=== PATIENT | male | born 1940 | race Caucasian/White ===

== ENCOUNTER 2020-07-10 12:13 | Emergency (ER) | payer MEDICARE, OTHER ==
[2020-07-10 12:46] VITALS: BP 128/78
[2020-07-10] MEDS ORDERED: Sodium Chloride 0.9% 10 ML Syringe FLUSH PRN (13:06)
[2020-07-10] MEDS ORDERED: Sodium Chloride 0.9% 1,000 ML IV ONE (13:06)
[2020-07-10] MEDS ORDERED: Loperamide 2 MG Cap PO ONE (13:06)
[2020-07-10] MEDS ORDERED: Metoclopramide 10 MG/2 ML SDV IVPUSH ONE (13:06)
--- NOTE | 2020-07-10 13:21 | EDM.PDOC ---
ED HPI GENERAL MEDICAL PROBLEM - General Chief Complaint: Respiratory Problem Stated Complaint: COUGH/DIARRHEA Time Seen by Provider: 07/10/20 12:36 Source of Information: Reports: Patient, RN Notes Reviewed History Limitations: Reports: No Limitations - History of Present Illness INITIAL COMMENTS - FREE TEXT/NARRATIVE: Patient is an 80-year-old male who presents to the ED for the evaluation of his ongoing illness. He notes that roughly 2-1/2 weeks ago, he developed a nonstop cough, sneezing/nasal congestion, all over body aches. He notes that he has had a productive cough at times, but he states he swallows the mucus and is not sure of the color. He states for the last 3 days as well, he has had multiple episodes of diarrhea, that seem to be just watery stools. He denies any recent antibiotic use. He has been eating and drinking okay, but states he does not really have an appetite. He is trying to utilize water and Gatorade for management. He does have nausea but no fevers or chills, no perceived shortness of breath. He has hot and cold flashes at times. He notes his is not sick at home, and he denies any known sick contacts. He was tested for COVID-19 1- 1/2 months ago and this was negative at the [facility] testing. His primary care provider is Dr. Jasmine. Other Treatments ADVISORY APPLICATION DEVELOPER: none today Generalized Pain Score (Numeric/FACES): 8 - Related Data Allergies Allergy/AdvReac Type Severity Reaction Status Date / Time No Known Allergies Allergy Verified 03/18/16 09:31 Home Meds: Home Meds Aspirin [Adult Low Dose Aspirin EC] 81 mg PO DAILY 01/05/15 [History] Levothyroxine [Synthroid] 100 mcg PO DAILY 01/05/15 [History] Celecoxib [CeleBREX] 200 mg PO DAILY 06/14/18 [History] Multivitamin [Multivitamins] 1 cap PO DAILY 06/14/18 [History] Pravastatin Sodium 10 mg PO DAILY 06/14/18 [History] Sotalol [Betapace] 80 mg PO DAILY 06/14/18 [History] Acetaminophen/HYDROcodone [[place] 325-5 MG] 1 - 2 tab PO Q6H PRN #15 tablet 06/17/18 [Rx] Codeine/Promethazine [Phenergan with Codeine] 10 ml PO Q6HR PRN #120 ml 07/10/20 [Rx] Past Medical History Cardiovascular History: Reports: Afib, High Cholesterol, Hypertension Gastrointestinal History: Reports: Chronic Diarrhea Genitourinary History: Reports: Prostate Disorder Psychiatric History: Reports: Anxiety, Depression Endocrine/Metabolic History: Reports: Hypothyroidism Other Hematologic History: thrombocytopenia - Past Surgical History Cardiovascular Surgical History: Reports: Cardiac Ablation GI Surgical History: Reports: Hernia Repair/Other Musculoskeletal Surgical History: Reports: Shoulder Surgery Social & Family History - Tobacco Use Tobacco Use Status *Q: Former Tobacco User Used Tobacco, but Quit: Yes Month/Year Tobacco Last Used: 40 - Caffeine Use Caffeine Use: Reports: Coffee, Soda - Recreational Drug Use Recreational Drug Use: No - Living Situation & Occupation Occupation: Retired ED ROS GENERAL - Review of Systems Review Of Systems: Comprehensive ROS is negative, except as noted in HPI. ED EXAM, GENERAL - Physical Exam Exam: See Below Exam Limited By: No Limitations General Appearance: Alert, WD/WN, No Apparent Distress Eye Exam: Bilateral Eye: EOMI, Normal Inspection, PERRL Throat/Mouth: Normal Inspection, Normal Lips, Normal Teeth, Normal Gums, Normal Oropharynx, Normal Voice, No Airway Compromise Respiratory/Chest: No Respiratory Distress, Lungs Clear, Normal Breath Sounds, No Accessory Muscle Use, Chest Non-Tender Cardiovascular: Normal Peripheral Pulses, Regular Rate, Rhythm, No Edema, No Murmur Peripheral Pulses: 2+: Radial (L), Radial (R) GI/Abdominal: Normal Bowel Sounds, Soft, Non-Tender, No Distention, No Mass Extremities: Normal Inspection, Normal Capillary Refill Neurological: Alert, Oriented, Normal Cognition, No Motor/Sensory Deficits Psychiatric: Normal Affect, Normal Mood Skin Exam: Warm, Dry, Intact, Normal Color, No Rash Course - Vital Signs Last Recorded V/S: Last Vital Signs Temp 97.8 F 07/10/20 12:42 Pulse 81 07/10/20 12:42 Resp 17 07/10/20 12:42 BP 128/78 07/10/20 12:42 Pulse Ox 94 L 07/10/20 12:42 - Orders/Labs/Meds Orders: Active Orders 24 hr Category Date Time Status Peripheral IV Care [RC] . DIRECTED Care 07/10/20 13:07 Ordered Chest 1V Frontal [CR] Stat Exams 07/10/20 13:05 Ordered Sodium Chloride 0.9% [Saline Flush] Med 07/10/20 13:06 Ordered 10 ml FLUSH ASDIRECTED PRN Isolation [COMM] Routine Oth 07/10/20 13:05 Ordered Peripheral IV Insertion Adult [OM.PC] Routine Oth 07/10/20 13:06 Ordered Medication Orders Sodium Chloride (Saline Flush) 10 ml FLUSH ASDIRECTED PRN PRN Reason: Keep Vein Open Last Admin: 07/10/20 13:50 Dose: 10 ml Documented by: ASA Labs: Laboratory Tests 07/10/20 07/10/20 07/10/20 Range/Units 13:35 13:40 13:40 WBC 5.05 (4.23-9.07) K/mm3 RBC 5.27 (4.63-6.08) M/mm3 Hgb 16.1 (13.7-17.5) gm/dl Hct 49.8 (40.1-51.0) % MCV 94.5 H (79.0-92.2) fl MCH 30.6 (25.7-32.2) pg MCHC 32.3 (32.2-35.5) g/dl RDW Std Deviation 47.3 H (35.1-43.9) fL Plt Count 121 L (163-337) K/mm3 MPV 12.6 H (9.4-12.3) fl Neutrophils % (Manual) 82 H (40-60) % Band Neutrophils % 0 (0-10) % Lymphocytes % (Manual) 12 L (20-40) % Atypical Lymphs % 0 % Monocytes % (Manual) 6 (2-10) % Eosinophils % (Manual) 0 L (0.8-7.0) % Basophils % (Manual) 0 L (0.2-1.2) Platelet Estimate Adequate RBC Morph Comment Normal PT (9.7-12.0) SECONDS INR APTT (21.7-31.4) SECONDS D-Dimer, Quantitative (0.19-0.50) mg/L Sodium (136-145) mEq/L Potassium (3.5-5.1) mEq/L Chloride (98-107) mEq/L Carbon Dioxide (21-32) mEq/L Anion Gap (5-15) BUN (7-18) mg/dL Creatinine (0.7-1.3) mg/dL Est Cr Clr Drug Dosing mL/min Estimated GFR (MDRD) (>60) mL/min BUN/Creatinine Ratio (14-18) Glucose (83-115) mg/dL Calcium (8.5-10.1) mg/dL Magnesium (1.8-2.4) mg/dl Ferritin (26-388) ng/ml Total Bilirubin (0.2-1.0) mg/dL AST (15-37) U/L ALT (16-63) U/L Alkaline Phosphatase (46-116) U/L Lactate Dehydrogenase (85-227) U/L C-Reactive Protein 4.0 H* (<1.0) mg/dL NT-Pro-B Natriuret Pep (0-450) pg/mL Total Protein (6.4-8.2) g/dl Albumin (3.4-5.0) g/dl Globulin gm/dL Albumin/Globulin Ratio (1-2) SARS-CoV-2 RNA ([facility]) Positive H (NEGATIVE) 07/10/20 07/10/20 07/10/20 Range/Units 13:40 13:40 13:40 WBC (4.23-9.07) K/mm3 RBC (4.63-6.08) M/mm3 Hgb (13.7-17.5) gm/dl Hct (40.1-51.0) % MCV (79.0-92.2) fl MCH (25.7-32.2) pg MCHC (32.2-35.5) g/dl RDW Std Deviation (35.1-43.9) fL Plt Count (163-337) K/mm3 MPV (9.4-12.3) fl Neutrophils % (Manual) (40-60) % Band Neutrophils % (0-10) % Lymphocytes % (Manual) (20-40) % Atypical Lymphs % % Monocytes % (Manual) (2-10) % Eosinophils % (Manual) (0.8-7.0) % Basophils % (Manual) (0.2-1.2) Platelet Estimate RBC Morph Comment PT 12.1 H (9.7-12.0) SECONDS INR 1.13 APTT 30.0 (21.7-31.4) SECONDS D-Dimer, Quantitative 0.37 (0.19-0.50) mg/L Sodium 138 (136-145) mEq/L Potassium 4.3 (3.5-5.1) mEq/L Chloride 102 (98-107) mEq/L Carbon Dioxide 29 (21-32) mEq/L Anion Gap 11.3 (5-15) BUN 17 (7-18) mg/dL Creatinine 1.2 (0.7-1.3) mg/dL Est Cr Clr Drug Dosing 57.08 mL/min Estimated GFR (MDRD) 58 (>60) mL/min BUN/Creatinine Ratio 14.2 (14-18) Glucose 101 (83-115) mg/dL Calcium 8.9 (8.5-10.1) mg/dL Magnesium 1.8 (1.8-2.4) mg/dl Ferritin (26-388) ng/ml Total Bilirubin 1.1 H (0.2-1.0) mg/dL AST 54 H (15-37) U/L ALT 58 (16-63) U/L Alkaline Phosphatase 47 (46-116) U/L Lactate Dehydrogenase 283 H (85-227) U/L C-Reactive Protein (<1.0) mg/dL NT-Pro-B Natriuret Pep 212 (0-450) pg/mL Total Protein 8.0 (6.4-8.2) g/dl Albumin 3.7 (3.4-5.0) g/dl Globulin 4.3 gm/dL Albumin/Globulin Ratio 0.9 L (1-2) SARS-CoV-2 RNA ([facility]) (NEGATIVE) 07/10/20 Range/Units 13:40 WBC (4.23-9.07) K/mm3 RBC (4.63-6.08) M/mm3 Hgb (13.7-17.5) gm/dl Hct (40.1-51.0) % MCV (79.0-92.2) fl MCH (25.7-32.2) pg MCHC (32.2-35.5) g/dl RDW Std Deviation (35.1-43.9) fL Plt Count (163-337) K/mm3 MPV (9.4-12.3) fl Neutrophils % (Manual) (40-60) % Band Neutrophils % (0-10) % Lymphocytes % (Manual) (20-40) % Atypical Lymphs % % Monocytes % (Manual) (2-10) % Eosinophils % (Manual) (0.8-7.0) % Basophils % (Manual) (0.2-1.2) Platelet Estimate RBC Morph Comment PT (9.7-12.0) SECONDS INR APTT (21.7-31.4) SECONDS D-Dimer, Quantitative (0.19-0.50) mg/L Sodium (136-145) mEq/L Potassium (3.5-5.1) mEq/L Chloride (98-107) mEq/L Carbon Dioxide (21-32) mEq/L Anion Gap (5-15) BUN (7-18) mg/dL Creatinine (0.7-1.3) mg/dL Est Cr Clr Drug Dosing mL/min Estimated GFR (MDRD) (>60) mL/min BUN/Creatinine Ratio (14-18) Glucose (83-115) mg/dL Calcium (8.5-10.1) mg/dL Magnesium (1.8-2.4) mg/dl Ferritin 602 H (26-388) ng/ml Total Bilirubin (0.2-1.0) mg/dL AST (15-37) U/L ALT (16-63) U/L Alkaline Phosphatase (46-116) U/L Lactate Dehydrogenase (85-227) U/L C-Reactive Protein (<1.0) mg/dL NT-Pro-B Natriuret Pep (0-450) pg/mL Total Protein (6.4-8.2) g/dl Albumin (3.4-5.0) g/dl Globulin gm/dL Albumin/Globulin Ratio (1-2) SARS-CoV-2 RNA ([facility]) (NEGATIVE) Meds: Medications Generic Name Dose Route Start Last Admin Trade Name Freq PRN Reason Stop Dose Admin Sodium Chloride 10 ml 07/10/20 13:06 07/10/20 13:50 Saline Flush FLUSH 10 ml ASDIRECTED PRN Administration Keep Vein Open Discontinued Medications Generic Name Dose Route Start Last Admin Trade Name Freq PRN Reason Stop Dose Admin Sodium Chloride 1,000 mls @ 500 mls/hr 07/10/20 13:06 07/10/20 13:49 Normal Saline IV 07/10/20 15:05 500 mls/hr ONETIME ONE Administration Loperamide HCl 4 mg 07/10/20 13:06 07/10/20 13:31 Imodium PO 07/10/20 13:07 4 mg ONETIME ONE Administration Metoclopramide HCl 10 mg 07/10/20 13:06 07/10/20 14:16 Reglan IVPUSH 07/10/20 13:07 Not Given ONETIME ONE - Re-Assessments/Exams Free Text/Narrative Re-Assessment/Exam: 07/10/20 13:21 Patient presents to the ED for evaluation of his ongoing illness. He will have a multitude of labs taken, chest x-ray, along with some IV fluids for his reported diarrhea, he will get some antinausea medications as well. 07/10/20 15:27 The patient's labs have been resulted, CBC is essentially unremarkable, D-dimer is within normal limits at 0.37, CMP is fairly unremarkable, ferritin elevated at 602, LDH elevated at 283, CRP elevated at 4.0. Patient's COVID-19 test done in the hospital was positive at this time. Still awaiting chest x-ray results, but there is no obvious sign of infiltrates reviewed by myself or Dr. Olmedo. No the patient states he has been having symptoms for the last 2 weeks, so is hard to delineate exactly when his symptoms started. His O2 sats has been in the low 90s, but he is not dyspneic. They have been 91 to 93% as I been watching him on the monitor. Departure - Departure Time of Disposition: 15:37 Disposition: Home, Self-Care 01 Condition: Good Clinical Impression: COVID-19 - Discharge Information *PRESCRIPTION DRUG MONITORING PROGRAM REVIEWED*: No *COPY OF PRESCRIPTION DRUG MONITORING REPORT IN PATIENT KAREN: No Prescriptions: Codeine/Promethazine [Phenergan with Codeine] 10 ml PO Q6HR PRN #120 ml PRN Reason: Cough Instructions: COVID-19 Frequently Asked Questions, Prevent the Spread of COVID- 19 if You Are Sick - [facility] Referrals: Britton Jasmine MD [Primary Care Provider] - Forms: ED Department Discharge Additional Instructions: You were seen in the ER today for ongoing and/or worsening respiratory symptoms. Your chest x-ray showed no signs of pneumonia at this time. Your oxygen levels were acceptable at 93-94% on room air. You did test positive for COVID-19. We ask that you self-quarantine and limit your exposure to others until you receive further direction from the [facility] department of Health. Please try to increase your oral fluid intake, and eat multiple small meals throughout the day, to keep yourself healthy. You need to keep yourself nourished in order to fight off this disease. You can try a liquid diet like gatorade/powerade as well to get your electrolytes. You may take 500 mg Tylenol every hours 6 hours for pain/fever relief. Do not exceed 4000 mg Tylenol in a 24-hour time span. However, running a fever is your body's natural response to illness, and it allows the body to develop antibodies to disease, we are recommending trying to limit the use of Tylenol as much as possible to allow your body's natural immune response. You were given a prescription for cough medication, please take as directed as needed for further cough. Recommend you obtain a pulse oximeter and monitor your oxygen levels at home, you should place the monitor on your finger, and sit in a calm, quiet position for a few minutes and then record the number that is on the screen. If this consistently below 90% on room air without movement, this would be cause for concern to come back to the hospital for further management of your COVID-19 disease. Sepsis Event Note (ED) - Evaluation Sepsis Screening Result: No Definite Risk - Focused Exam Vital Signs: Vital Signs Temp Pulse Resp BP Pulse Ox 07/10/20 12:42 97.8 F 81 17 128/78 94 L - My Orders Last 24 Hours: My Active Orders 07/10/20 13:05 Chest 1V Frontal [CR] Stat Isolation [COMM] Routine 07/10/20 13:06 Sodium Chloride 0.9% [Saline Flush] 10 ml FLUSH ASDIRECTED PRN Peripheral IV Insertion Adult [OM.PC] Routine 07/10/20 13:07 Peripheral IV Care [RC] . DIRECTED - Assessment/Plan Last 24 Hours: My Active Orders 07/10/20 13:05 Chest 1V Frontal [CR] Stat Isolation [COMM] Routine 07/10/20 13:06 Sodium Chloride 0.9% [Saline Flush] 10 ml FLUSH ASDIRECTED PRN Peripheral IV Insertion Adult [OM.PC] Routine 07/10/20 13:07 Peripheral IV Care [RC] . DIRECTED
[2020-07-10 16:48] VITALS: PULSE 88
--- NOTE | 2020-07-12 10:18 | CR ---
PROCEDURE INFORMATION: Exam: XR Chest, 1 View Exam date and time: 07/10/2020 1:49 PM Age: 80 years old Clinical indication: Screening exam; Patient HX: Suspect covid TECHNIQUE: Imaging protocol: XR of the chest Views: 1 view. COMPARISON: No relevant prior studies available. FINDINGS: Lungs: Body habitus limits examination. Questionable faint interstitial shadows along lateral margins of both hero thoraces.. No consolidation. Pleural space: Unremarkable. No pleural effusion. No pneumothorax. Heart/Mediastinum: Projection and portable technique exaggerates cardiac shadow. Bones/joints: Unremarkable. IMPRESSION: Technically limited study. Interstitial infiltrate in lateral mid lungs cannot be excluded. Consider a repeat PA and lateral view of thorax to further evaluate Thank you for allowing us to participate in the care of your patient. Dictated and Authenticated by: Hector Velásquez MD 07/10/2020 4:42 PM Central Time ([place] & [place]) [facility]
== END 2020-07-10 16:45 | disposition home or self-care (01) ==
LOC: JD.ED 12:13
DX: U07.1 COVID-19 (principal); R79.89 Other specified abnormal findings of blood chemistry; I10 Essential (primary) hypertension; E78.00 Pure hypercholesterolemia, unspecified; I48.91 Unspecified atrial fibrillation; E03.9 Hypothyroidism, unspecified; Z87.891 Personal history of nicotine dependence; Z79.82 Long term (current) use of aspirin; Z79.899 Other long term (current) drug therapy
CPT/HCPCS: 36415; 71045; 80053; 82728; 83615; 83735; 83880; 85007; 85027; 85379; 85610; 85730; 86140; 87804; 99284; A9270; J7030; U0002; 99283